=== PATIENT | male | born 1975 | race Caucasian/White ===

== ENCOUNTER 2020-08-18 19:09 | Observation (INO) | payer OTHER ==
[2020-08-18] MEDS ORDERED: ASPIRIN 81 MG PO STA (19:33)
--- NOTE | 2020-08-18 20:15 | XR ---
EXAMINATION: XR chest 2V DATE AND TIME: 08/18/2020 8:08 PM CLINICAL INDICATION: PHH; Chest Pain TECHNIQUE: Departmental protocol COMPARISON: None FINDINGS: The lungs are clear. The pleural spaces are negative. The cardiac silhouette is not enlarged. The remainder of the mediastinal silhouette is unremarkable. The skeletal structures and soft tissues are negative for acute findings. IMPRESSION: NO ACUTE PROCESS.
[2020-08-18 20:22] LABS: ALT 48 U/L (4-49); AST 38 U/L (17-59); African American GFR (CKD) >90 (>60 ml/min/1.73 sqM); Albumin 3.9 g/dL (3.5-5.0); Alkaline Phosphatase 94 U/L (38-126); Anion Gap 7 mmol/L; Blood Urea Nitrogen 19 mg/dL (9-20); Calcium 9.4 mg/dL (8.4-10.2); Carbon Dioxide 22 mmol/L (22-30); Chloride 110 mmol/L (98-107); Glucose 104 mg/dL (74-99); Non-African American GFR(CKD) >90 (>60 ml/min/1.73 sqM); Sodium 139 mmol/L (137-145); Total Bilirubin 0.3 mg/dL (0.2-1.3); Total Protein 6.7 g/dL (6.3-8.2)
[2020-08-18 20:26] LABS: Potassium 4.5 mmol/L (3.5-5.1)
[2020-08-18 20:31] LABS: D-Dimer 0.27 mg/L FEU (<0.60); INR 0.9 (<1.2); Partial Thromboplastin Time 21.1 sec (22.0-30.0); Prothrombin Time 9.4 sec (9.0-12.0)
--- NOTE | 2020-08-18 20:38 | ED ---
General Adult HPI - General Chief complaint: Chest Pain Stated complaint: Chest Pain Time Seen by Provider: 08/18/20 19:16 Source: patient Mode of arrival: EMS Limitations: no limitations - History of Present Illness Initial comments: 45-year-old male patient presents to the emergency department today for evaluation of left-sided chest pain this started approximately an hour prior to arrival. Reports sharp stabbing pain followed by pressure over the left chest. Pain is nonradiating. States he was just walking when symptoms started. Denies shortness of breath, nausea vomiting, sweats with this. Denies his injury of cardiac disease. States he does have a history of high blood pressure and A. fib. The A. fib is related to an overdose from remote history of IV drug use. Does not take any anticoagulants or medication for A. fib. Also has history of cigarette use. He is currently at [facility] for alcohol, states she's been there for about 10 days. He denies any leg pain or swelling. Patient denies any recent rash, cough, abdominal pain, diarrhea, constipation, back pain, numbness, tingling, dizziness, weakness, hematuria, dysuria, urinary urgency, urinary frequency, headache, visual changes, or any other complaints. - Related Data Home Medications Medication Instructions Recorded Confirmed Acetaminophen [Tylenol 8 Hour] 650 mg PO Q4H PRN 08/18/20 08/18/20 Calcium-Magnesium Supp 1 dose PO DIRECTED 08/18/20 08/18/20 Cyproheptadine [Cyproheptadine HCl] 4 mg PO Q4H PRN MDD 16 MG 08/18/20 08/18/20 Ibuprofen [Motrin] 600 mg PO Q6H PRN 08/18/20 08/18/20 Loperamide HCl [Imodium A-D] 4 mg PO QID PRN 08/18/20 08/18/20 Multivitamins, Thera [Multivitamin 1 tab PO DAILY 08/18/20 08/18/20 (formulary)] Thiamine [Vitamin B-1] 100 mg PO DAILY 08/18/20 08/18/20 Tigan 200mg Inj 200 mg IM Q6H PRN 08/18/20 08/18/20 Trimethobenzamide HCl [Tigan] 300 mg PO Q6H PRN 08/18/20 08/18/20 Zofran 2mg/Ml Solution 4 mg IM Q6H PRN 08/18/20 08/18/20 busPIRone HCl [Buspar] 10 mg PO TID PRN 08/18/20 08/18/20 ondansetron HCL [Zofran] 8 mg PO Q6H PRN 08/18/20 08/18/20 traZODone HCL 50 - 150 mg PO HS PRN 08/18/20 08/18/20 Allergies Allergy/AdvReac Type Severity Reaction Status Date / Time No Known Allergies Allergy Verified 08/18/20 20:25 Review of Systems ROS Statement: Those systems with pertinent positive or pertinent negative responses have been documented in the HPI. ROS Other: All systems not noted in ROS Statement are negative. Past Medical History Past Medical History: Atrial Fibrillation History of Any Multi-Drug Resistant Organisms: None Reported Past Surgical History: Adenoidectomy, Orthopedic Surgery, Tonsillectomy Additional Past Surgical History / Comment(s): bilateral hiatal hernia, left wrist Past Psychological History: No Psychological Hx Reported Smoking Status: Current every day smoker Past Alcohol Use History: Daily Past Drug Use History: Marijuana General Exam Limitations: no limitations General appearance: alert, in no apparent distress, other (This is a well- developed, well-nourished adult male patient in no acute distress. Vital signs upon presentation temperature 98.5F, pulse 71, respirations 16, blood pressure 137/90, pulse ox 99% on room air.) Eye exam: Present: normal appearance, PERRL, EOMI. Absent: scleral icterus, conjunctival injection, periorbital swelling ENT exam: Present: normal exam, normal oropharynx, mucous membranes moist Respiratory exam: Present: normal lung sounds bilaterally. Absent: respiratory distress, wheezes, rales, rhonchi, stridor Cardiovascular Exam: Present: regular rate, normal rhythm, normal heart sounds. Absent: systolic murmur, diastolic murmur, rubs, gallop, clicks GI/Abdominal exam: Present: soft, normal bowel sounds. Absent: distended, tenderness, guarding, rebound, rigid Neurological exam: Present: alert, oriented X3, CN II-XII intact Psychiatric exam: Present: normal affect, normal mood Skin exam: Present: warm, dry, intact, normal color. Absent: rash Course Vital Signs 08/18/20 08/18/20 08/18/20 19:11 20:15 22:13 Temperature 98.5 F Pulse Rate 71 68 Pulse Rate [ 68 Pulse Oximetery ] Respiratory 16 16 Rate Blood Pressure 137/90 159/92 O2 Sat by Pulse 99 100 Oximetry - Reevaluation(s) Reevaluation #1: 08/18/20 20:37 Patient re-evaluated states chest pain is improved. Awaiting labs. EKG Findings - EKG Comments: EKG Findings:: EKG obtained in 192 shows normal sinus rhythm with ventricular rate of 72, RI interval 118, QRS duration 86, QT 362, QTc 396. There is evidence of ST elevation in lead 2, QT 3, aVF, and V3. Second EKG obtained at 1945 shows normal sinus rhythm with a rate of 75, RI interval 114, QRS duration 84, QT 352, QTc 393. Continues to show mild elevation in leads 2, lead 3, aVF, and V3. Medical Decision Making - Medical Decision Making 45-year-old male patient presenting from [facility] for alcohol addiction presents with left-sided chest pain started about an hour prior to arrival. Physical examination reveals clear equal lung sounds. No leg swelling. Labs reviewed and did reveal normal troponin. EKG did have some ST elevation noted in lead 2, lead 3, aVF, and possibly V3. Did discuss the case with my attending Dr. August. He'll be admitted for rule out ACS. Serial tr oponins added. He was given aspirin. Patient is agreeable this plan. - Lab Data Result diagrams: 08/18/20 19:33 08/18/20 19:33 Lab Results 08/18/20 08/18/20 08/18/20 Range/Units 19:33 19:33 19:33 WBC 4.8 (3.8-10.6) k/uL RBC 3.77 L (4.30-5.90) m/uL Hgb 13.5 (13.0-17.5) gm/dL Hct 40.2 (39.0-53.0) % MCV 106.6 H (80.0-100.0) fL MCH 35.8 H (25.0-35.0) pg MCHC 33.6 (31.0-37.0) g/dL RDW 13.5 (11.5-15.5) % Plt Count 207 (150-450) k/uL MPV 8.5 Neutrophils % (Manual) 56 % Lymphocytes % (Manual) 26 % Monocytes % (Manual) 13 % Eosinophils % (Manual) 5 % Neutrophils # (Manual) 2.69 (1.3-7.7) k/uL Lymphocytes # (Manual) 1.25 (1.0-4.8) k/uL Monocytes # (Manual) 0.62 (0-1.0) k/uL Eosinophils # (Manual) 0.24 (0-0.7) k/uL Nucleated RBCs 0 (0-0) /100 WBC Polychromasia Present Macrocytosis Moderate PT 9.4 (9.0-12.0) sec INR 0.9 (<1.2) APTT 21.1 L (22.0-30.0) sec D-Dimer 0.27 (<0.60) mg/L FEU Sodium 139 (137-145) mmol/L Potassium 4.5 (3.5-5.1) mmol/L Chloride 110 H (98-107) mmol/L Carbon Dioxide 22 (22-30) mmol/L Anion Gap 7 mmol/L BUN 19 (9-20) mg/dL Creatinine 0.97 (0.66-1.25) mg/dL Est GFR (CKD-EPI)AfAm >90 (>60 ml/min/1.73 sqM) Est GFR (CKD-EPI)NonAf >90 (>60 ml/min/1.73 sqM) Glucose 104 H (74-99) mg/dL Calcium 9.4 (8.4-10.2) mg/dL Magnesium 2.0 (1.6-2.3) mg/dL Total Bilirubin 0.3 (0.2-1.3) mg/dL AST 38 (17-59) U/L ALT 48 (4-49) U/L Alkaline Phosphatase 94 (38-126) U/L Troponin I (0.000-0.034) ng/mL Total Protein 6.7 (6.3-8.2) g/dL Albumin 3.9 (3.5-5.0) g/dL Coronavirus (PCR) (Not Detectd) 08/18/20 08/18/20 Range/Units 19:33 21:06 WBC (3.8-10.6) k/uL RBC (4.30-5.90) m/uL Hgb (13.0-17.5) gm/dL Hct (39.0-53.0) % MCV (80.0-100.0) fL MCH (25.0-35.0) pg MCHC (31.0-37.0) g/dL RDW (11.5-15.5) % Plt Count (150-450) k/uL MPV Neutrophils % (Manual) % Lymphocytes % (Manual) % Monocytes % (Manual) % Eosinophils % (Manual) % Neutrophils # (Manual) (1.3-7.7) k/uL Lymphocytes # (Manual) (1.0-4.8) k/uL Monocytes # (Manual) (0-1.0) k/uL Eosinophils # (Manual) (0-0.7) k/uL Nucleated RBCs (0-0) /100 WBC Polychromasia Macrocytosis PT (9.0-12.0) sec INR (<1.2) APTT (22.0-30.0) sec D-Dimer (<0.60) mg/L FEU Sodium (137-145) mmol/L Potassium (3.5-5.1) mmol/L Chloride (98-107) mmol/L Carbon Dioxide (22-30) mmol/L Anion Gap mmol/L BUN (9-20) mg/dL Creatinine (0.66-1.25) mg/dL Est GFR (CKD-EPI)AfAm (>60 ml/min/1.73 sqM) Est GFR (CKD-EPI)NonAf (>60 ml/min/1.73 sqM) Glucose (74-99) mg/dL Calcium (8.4-10.2) mg/dL Magnesium (1.6-2.3) mg/dL Total Bilirubin (0.2-1.3) mg/dL AST (17-59) U/L ALT (4-49) U/L Alkaline Phosphatase (38-126) U/L Troponin I <0.012 (0.000-0.034) ng/mL Total Protein (6.3-8.2) g/dL Albumin (3.5-5.0) g/dL Coronavirus (PCR) Not Detected (Not Detectd) - EKG Data -: EKG Interpreted by Me EKG Comments: EKG obtained at 2130 shows sinus bradycardia with ventricular 55, RI interval 118, QRS duration 86, QT 400, QTC 382. No changes to ST elevation. - Radiology Data Radiology results: report reviewed, image reviewed Two-view x-ray of the chest is obtained. Report was reviewed in its entirety. Impression by Dr. Charlene Sandoval shows no acute process. Disposition Clinical Impression: Chest pain, Unstable angina Disposition: ADMITTED IP TO THIS [facility] Condition: Serious Decision to Admit Reason: Admit from EC Decision Date: 08/18/20 Decision Time: 21:06
[2020-08-18 20:42] LABS: HCT 40.2 % (39.0-53.0); HGB 13.5 gm/dL (13.0-17.5); MCH 35.8 pg (25.0-35.0); MCHC 33.6 g/dL (31.0-37.0); MCV 106.6 fL (80.0-100.0); Macrocytosis Moderate; Mean Platelet Volume 8.5; Platelet Count 207 k/uL (150-450); RBC 3.77 m/uL (4.30-5.90); RDW 13.5 % (11.5-15.5); WBC 4.8 k/uL (3.8-10.6)
[2020-08-18 20:58] LABS: Eosinophils # (M) 0.24 k/uL (0-0.7); Lymphocytes # (M) 1.25 k/uL (1.0-4.8); Monocytes # (M) 0.62 k/uL (0-1.0); Neutrophils # (M) 2.69 k/uL (1.3-7.7); Neutrophils % (M) 56 %; Nucleated Red Blood Cells 0 /100 WBC (0-0); Polychromasia Present; Total Cells Counted 100
[2020-08-18] MEDS ORDERED: MORPHINE SULFATE 4 MG/ML SYRINGE IVP STA (21:00)
[2020-08-18] MEDS ORDERED: NITROGLYCERIN SL TABS 0.4 MG TAB SUBLINGUAL PRN (21:04)
[2020-08-18] MEDS ORDERED: MORPHINE SULFATE 4 MG/ML SYRINGE IV PRN (21:04)
[2020-08-18] MEDS ORDERED: NICOTINE 21MG/24HR PATCH TRANSDERM STA (22:15)
[2020-08-19] MEDS ORDERED: ONDANSETRON 4 MG TAB PO PRN (00:33)
[2020-08-19] MEDS ORDERED: ACETAMINOPHEN TAB 325 MG TAB PO PRN (00:33)
[2020-08-19] MEDS ORDERED: cloNIDine HCL 0.2 MG TAB PO PRN (00:33)
[2020-08-19] MEDS ORDERED: IBUPROFEN 600 MG TAB PO PRN (00:33)
--- NOTE | 2020-08-19 00:58 | P.HPIM ---
History of Present Illness H&P Date: 08/18/20 Chief Complaint: Chest pain 45-year-old male no significant past medical history, alcoholic Patient comes in from [facility] he has been there for the past 10 days for alcohol detox. Today suddenly he felt left-sided chest pressure rated as 8 out of 10 in severity and nonradiating not associated with any nausea vomiting diaphoresis headache dizziness lightheadedness or shortness of breath patient was evaluated by staff at [facility], decided to notify EMS to go to the hospital for evaluation Patient denies any cardiac history, he is a smoker and heavy drinker denies any active drug abuse. Denies any family history of premature heart disease Patient has received [employer] code vaccine on August 17. Otherwise patient currently is laying down comfortably still having left-sided chest pain rated 5-6 out of 10 in severity patient was found to have elevated blood pressure in the ED otherwise he denies any recent travel denies any recent viral infection denies any history of blood clots denies any other medical concerns at this point EKG showed normal sinus rhythm troponins were negative Review of Systems Pertinent positives as noted in HPI. All other systems were reviewed and are negative Past Medical History Past Medical History: Atrial Fibrillation History of Any Multi-Drug Resistant Organisms: None Reported Past Surgical History: Adenoidectomy, Orthopedic Surgery, Tonsillectomy Additional Past Surgical History / Comment(s): bilateral hiatal hernia, left wrist Past Psychological History: No Psychological Hx Reported Smoking Status: Current every day smoker Past Alcohol Use History: Daily Past Drug Use History: Marijuana - Past Family History family Family Medical History: No Reported History Medications and Allergies Home Medications Medication Instructions Recorded Confirmed Type Acetaminophen [Tylenol 8 Hour] 650 mg PO Q4H PRN 08/18/20 08/18/20 History Calcium-Magnesium Supp 1 dose PO DIRECTED 08/18/20 08/18/20 History Cyproheptadine [Cyproheptadine HCl] 4 mg PO Q4H PRN MDD 16 MG 08/18/20 08/18/20 History Ibuprofen [Motrin] 600 mg PO Q6H PRN 08/18/20 08/18/20 History Loperamide HCl [Imodium A-D] 4 mg PO QID PRN 08/18/20 08/18/20 History Multivitamins, Thera [Multivitamin 1 tab PO DAILY 08/18/20 08/18/20 History (formulary)] Thiamine [Vitamin B-1] 100 mg PO DAILY 08/18/20 08/18/20 History Tigan 200mg Inj 200 mg IM Q6H PRN 08/18/20 08/18/20 History Trimethobenzamide HCl [Tigan] 300 mg PO Q6H PRN 08/18/20 08/18/20 History Zofran 2mg/Ml Solution 4 mg IM Q6H PRN 08/18/20 08/18/20 History busPIRone HCl [Buspar] 10 mg PO TID PRN 08/18/20 08/18/20 History ondansetron HCL [Zofran] 8 mg PO Q6H PRN 08/18/20 08/18/20 History traZODone HCL 50 - 150 mg PO HS PRN 08/18/20 08/18/20 History Allergies Allergy/AdvReac Type Severity Reaction Status Date / Time No Known Allergies Allergy Verified 08/18/20 20:25 Physical Exam Vitals: Vital Signs Temp Pulse Resp BP Pulse Ox 08/18/20 19:11 98.5 F 71 16 137/90 99 Intake and Output 08/18/20 08/18/20 08/18/20 06:59 14:59 22:59 Other: Weight 65.771 kg Constitutional: No acute distress, conversant, pleasant Eyes: Anicteric sclerae, moist conjunctiva, Pupils equal round reactive to light ENMT: NC/AT Oropharynx clear, no erythema, or exudates Neck: Supple, FROM, no masses, or JVD No carotid bruits No thyromegaly Lungs: Clear to auscultation Clear to percussion Normal respiratory effort, no accessory muscle use Cardiovascular: Heart regular in rate and rhythm, No murmurs, gallops, or rubs No peripheral edema Abdominal: Soft Nontender, no guarding, rebound or rigidity Abdomen moving with respiration Normoactive bowel sounds No hepatomegaly, No splenomegaly No palpable mass No abdominal wall hernia noted Skin: Normal temperature, tone, texture, turgor No induration No subcutaneous nodules No rash, lesions No ulcers Extremities: No digital cyanosis No clubbing Pedal pulses intact and symmetrical Radial pulses intact and symmetrical No calf tenderness Psychiatric: Alert and oriented to person, place and time Appropriate affect fair judgement Neuro Muscles Strength 5/5 in all 4 extremities Sensation to light touch grossly present throughout Cranial nerves II-XII grossly intact No focal sensory deficits Lymphatics: no palpable cervical or supraclavicular , or inguinal lymph nodes Results CBC & Chem 7: 08/18/20 19:33 08/18/20 19:33 Labs: Abnormal Lab Results - Last 24 Hours (Table) 08/18/20 08/18/20 08/18/20 Range/Units 19:33 19:33 19:33 RBC 3.77 L (4.30-5.90) m/uL MCV 106.6 H (80.0-100.0) fL MCH 35.8 H (25.0-35.0) pg APTT 21.1 L (22.0-30.0) sec Chloride 110 H (98-107) mmol/L Glucose 104 H (74-99) mg/dL Assessment and Plan Assessment: atypical chest pain Elevated blood pressure Cardiac monitoring Trend troponins Cardiology eval Check echocardiogram Clonidine when necessary Patient with possibly require to be started on blood pressure medications depending on readings while in the hospital if systolic is persistently above 160 otherwise would recommend dietary modification and follow up with PCP Aspirin, nitro when necessary Pain control morphine when necessary as needed Check lipid profile Alcohol abuse Patient status post detox at [facility] Patient counseled to abstain from alcohol abuse CODE STATUS: Full code DVT prophylaxis: Mechanical Discussed with: Patient, ER, RN Anticipated length of stay less than [address]: [facility] A total of 65 minutes was spent on the care of this complex patient more than 50% of the time was spent in counseling and care coordination.
[2020-08-19 09:35] LABS: Chol/HDL Ratio 3.33; LDL Cholesterol,Calculated 73.8 mg/dL (0.0-131.0); VLDL Calculation 26.2 mg/dL (5.00-40.00)
--- NOTE | 2020-08-19 10:28 | P.DS ---
Providers Date of admission: 08/18/20 21:56 Expected date of discharge: 08/19/20 Attending physician: Echo Reynolds MD Consults: 08/18/20 21:04 Consult Physician Urgent Consulting Provider: [facility] Consult Reason/Comments: Unstable angina Do you want consulting provider notified?: Yes Primary care physician: Stated None Hospital Course: HPI: 45-year-old male no significant past medical history, alcoholic Patient comes in from [facility] he has been there for the past 10 days for alcohol detox. Today suddenly he felt left-sided chest pressure rated as 8 out of 10 in severity and nonradiating not associated with any nausea vomiting diaphoresis headache dizziness lightheadedness or shortness of breath patient was evaluated by staff at [facility], decided to notify EMS to go to the hospital for evaluation Patient denies any cardiac history, he is a smoker and heavy drinker denies any active drug abuse. Denies any family history of premature heart disease Patient has received [employer] code vaccine on August 17. Otherwise patient currently is laying down comfortably still having left-sided chest pain rated 5-6 out of 10 in severity patient was found to have elevated blood pressure in the ED otherwise he denies any recent travel denies any recent viral infection denies any history of blood clots denies any other medical co ncerns at this point EKG showed normal sinus rhythm troponins were negative Hospital course and treatment: Patient was admitted to the hospital with chest pain, cardiac enzymes were negative. D-dimer was negative. Chest pain resolved. He was found to have elevated blood pressure which improved. He will be discharged on Norvasc. He will be evaluated by cardiology and will undergo a stress test today. If cleared by cardiology with a negative stress test he will be discharged home with follow-up. He has a history of alcohol abuse/dependence but has been clean for the past 2 weeks. Patient Condition at Discharge: Stable Plan - Discharge Summary Discharge Rx Participant: No New Discharge Prescriptions: New amLODIPine [Norvasc] 5 mg PO DAILY 30 Days #30 tab Continue traZODone HCL 50 - 150 mg PO HS PRN PRN Reason: SLEEP Calcium-Magnesium Supp 1 dose PO DIRECTED Ibuprofen [Motrin] 600 mg PO Q6H PRN PRN Reason: Pain Or Fever > 100.5 Loperamide HCl [Imodium A-D] 4 mg PO QID PRN PRN Reason: Diarrhea Acetaminophen [Tylenol 8 Hour] 650 mg PO Q4H PRN PRN Reason: Pain Or Fever > 100.5 Tigan 200mg Inj 200 mg IM Q6H PRN PRN Reason: Nausea Zofran 2mg/Ml Solution 4 mg IM Q6H PRN PRN Reason: Nausea Thiamine [Vitamin B-1] 100 mg PO DAILY Multivitamins, Thera [Multivitamin (formulary)] 1 tab PO DAILY Cyproheptadine [Cyproheptadine HCl] 4 mg PO Q4H PRN MDD 16 MG PRN Reason: WITHDRAWLS busPIRone HCl [Buspar] 10 mg PO TID PRN PRN Reason: Anxiety Trimethobenzamide HCl [Tigan] 300 mg PO Q6H PRN PRN Reason: Nausea ondansetron HCL [Zofran] 8 mg PO Q6H PRN PRN Reason: Nausea Discharge Medication List Acetaminophen [Tylenol 8 Hour] 650 mg PO Q4H PRN 08/18/20 [History] Calcium-Magnesium Supp 1 dose PO DIRECTED 08/18/20 [History] Cyproheptadine [Cyproheptadine HCl] 4 mg PO Q4H PRN MDD 16 MG 08/18/20 [History] Ibuprofen [Motrin] 600 mg PO Q6H PRN 08/18/20 [History] Loperamide HCl [Imodium A-D] 4 mg PO QID PRN 08/18/20 [History] Multivitamins, Thera [Multivitamin (formulary)] 1 tab PO DAILY 08/18/20 [History] Thiamine [Vitamin B-1] 100 mg PO DAILY 08/18/20 [History] Tigan 200mg Inj 200 mg IM Q6H PRN 08/18/20 [History] Trimethobenzamide HCl [Tigan] 300 mg PO Q6H PRN 08/18/20 [History] Zofran 2mg/Ml Solution 4 mg IM Q6H PRN 08/18/20 [History] busPIRone HCl [Buspar] 10 mg PO TID PRN 08/18/20 [History] ondansetron HCL [Zofran] 8 mg PO Q6H PRN 08/18/20 [History] traZODone HCL 50 - 150 mg PO HS PRN 08/18/20 [History] amLODIPine [Norvasc] 5 mg PO DAILY 30 Days #30 tab 08/19/20 [Rx] Follow up Appointment(s)/Referral(s): None,Stated [Primary Care Provider] - 1-2 days Discharge Disposition: HOME SELF-CARE Care Plan Goals (MU): Discharge once cleared by cardiology with outpatient cardiology follow-up in one week, pending stress test results
--- NOTE | 2020-08-19 11:31 | P.CRDCN ---
History of Present Illness Consult date: 08/19/20 Chief complaint: chest pain History of present illness: This is a 45-year-old gentleman with no significant past medical history who requested to severe on the observation unit for chest discomfort. 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 He was outside smoking a cigarette when suddenly started experiencing discomfort in the middle of the chest as a burning sensation without any radiation and without any associated symptoms. Currently he is chest pain-free. He does have history of hypertension and also smoking as risk factors. No prior history of documented coronary artery disease. He was ruled out for acute coronary event. The EKG showed sinus rhythm without any significant ST or T-wave abnormalities and the cardiac enzymes came in to be unremarkable. I asked the patient to undergo a stress test to rule out severe CAD and he will be scheduled later today to have the stress test. Past Medical History Past Medical History: Atrial Fibrillation History of Any Multi-Drug Resistant Organisms: None Reported Past Surgical History: Adenoidectomy, Orthopedic Surgery, Tonsillectomy Additional Past Surgical History / Comment(s): bilateral hiatal hernia, left wrist Past Psychological History: No Psychological Hx Reported Smoking Status: Current every day smoker Past Alcohol Use History: Daily Past Drug Use History: Marijuana - Past Family History family Family Medical History: No Reported History Medications and Allergies Home Medications Medication Instructions Recorded Confirmed Type Acetaminophen [Tylenol 8 Hour] 650 mg PO Q4H PRN 08/18/20 08/18/20 History Calcium-Magnesium Supp 1 dose PO DIRECTED 08/18/20 08/18/20 History Cyproheptadine [Cyproheptadine HCl] 4 mg PO Q4H PRN MDD 16 MG 08/18/20 08/18/20 History Ibuprofen [Motrin] 600 mg PO Q6H PRN 08/18/20 08/18/20 History Loperamide HCl [Imodium A-D] 4 mg PO QID PRN 08/18/20 08/18/20 History Multivitamins, Thera [Multivitamin 1 tab PO DAILY 08/18/20 08/18/20 History (formulary)] Thiamine [Vitamin B-1] 100 mg PO DAILY 08/18/20 08/18/20 History Tigan 200mg Inj 200 mg IM Q6H PRN 08/18/20 08/18/20 History Trimethobenzamide HCl [Tigan] 300 mg PO Q6H PRN 08/18/20 08/18/20 History Zofran 2mg/Ml Solution 4 mg IM Q6H PRN 08/18/20 08/18/20 History busPIRone HCl [Buspar] 10 mg PO TID PRN 08/18/20 08/18/20 History ondansetron HCL [Zofran] 8 mg PO Q6H PRN 08/18/20 08/18/20 History traZODone HCL 50 - 150 mg PO HS PRN 08/18/20 08/18/20 History amLODIPine [Norvasc] 5 mg PO DAILY 30 Days #30 tab 08/19/20 Rx Allergies Allergy/AdvReac Type Severity Reaction Status Date / Time No Known Allergies Allergy Verified 08/18/20 20:25 Physical Exam Vitals: Vital Signs Temp Pulse Pulse Resp BP BP Pulse Ox 08/19/20 08:11 99 08/19/20 07:00 98.3 F 55 L 18 130/78 100 08/19/20 02:00 98.0 F 59 L 18 144/83 100 08/18/20 23:06 98.2 F 52 L 18 168/93 99 08/18/20 22:13 68 16 159/92 100 08/18/20 20:15 68 08/18/20 19:11 98.5 F 71 16 137/90 99 Intake and Output 08/18/20 08/19/20 08/19/20 22:59 06:59 14:59 Other: Voiding Method Toilet Toilet # Voids 2 Weight 65.771 kg 65.771 kg - Constitutional General appearance: no acute distress - Respiratory Respiratory: bilateral: CTA - Cardiovascular Rhythm: regular Heart sounds: normal: S1, S2 Results 08/18/20 19:33 08/18/20 19:33 Cardiac Enzymes 08/18/20 08/18/20 08/18/20 Range/Units 19:33 19:33 22:45 AST 38 (17-59) U/L Troponin I <0.012 <0.012 (0.000-0.034) ng/mL 08/19/20 Range/Units 02:40 AST (17-59) U/L Troponin I <0.012 (0.000-0.034) ng/mL Coagulation 08/18/20 Range/Units 19:33 PT 9.4 (9.0-12.0) sec APTT 21.1 L (22.0-30.0) sec Lipids 08/19/20 Range/Units 02:40 Triglycerides 131.0 (0.0-149.0) mg/dL Cholesterol 143 (0-200) mg/dL HDL Cholesterol 43.0 (40.0-60.0) mg/dL Cholesterol/HDL Ratio 3.33 CBC 08/18/20 Range/Units 19:33 WBC 4.8 (3.8-10.6) k/uL RBC 3.77 L (4.30-5.90) m/uL Hgb 13.5 (13.0-17.5) gm/dL Hct 40.2 (39.0-53.0) % Plt Count 207 (150-450) k/uL Comprehensive Metabolic Panel 08/18/20 Range/Units 19:33 Sodium 139 (137-145) mmol/L Potassium 4.5 (3.5-5.1) mmol/L Chloride 110 H (98-107) mmol/L Carbon Dioxide 22 (22-30) mmol/L BUN 19 (9-20) mg/dL Creatinine 0.97 (0.66-1.25) mg/dL Glucose 104 H (74-99) mg/dL Calcium 9.4 (8.4-10.2) mg/dL AST 38 (17-59) U/L ALT 48 (4-49) U/L Alkaline Phosphatase 94 (38-126) U/L Total Protein 6.7 (6.3-8.2) g/dL Albumin 3.9 (3.5-5.0) g/dL Current Medications Generic Name Dose Route Start Last Admin Trade Name Freq PRN Reason Stop Dose Admin Acetaminophen 650 mg 08/19/20 00:33 Acetaminophen Tab 325 Mg Tab PO Q4H PRN Pain or Fever > 100.5 Aspirin 325 mg 08/19/20 09:00 Aspirin 325 Mg Tab PO DAILY AVEL Buspirone HCl 10 mg 08/19/20 00:33 Buspirone Hcl 10 Mg Tab PO TID PRN Anxiety Clonidine 0.2 mg 06/11/21 00:33 Clonidine Hcl 0.2 Mg Tab PO TID PRN Blood Pressure - High Ibuprofen 600 mg 08/19/20 00:33 Ibuprofen 600 Mg Tab PO Q6H PRN Pain or Fever > 100.5 Morphine Sulfate 4 mg 08/18/20 21:04 Morphine Sulfate 4 Mg/Ml Syringe IV Q4H PRN Chest Pain Nitroglycerin 0.4 mg 08/18/20 21:04 08/18/20 22:18 Nitroglycerin Sl Tabs 0.4 Mg Tab SUBLINGUAL 0.4 mg Q5M PRN Administration Chest Pain Ondansetron HCl 8 mg 08/19/20 00:33 Ondansetron 4 Mg Tab PO Q6H PRN Nausea Thiamine HCl 100 mg 08/19/20 09:00 Thiamine 100 Mg Tab PO DAILY AVEL Intake and Output 08/18/20 08/19/20 08/19/20 22:59 06:59 14:59 Other: Voiding Method Toilet Toilet # Voids 2 Weight 65.771 kg 65.771 kg 08/18/20 19:33 08/18/20 19:33 Assessment and Plan Assessment: assessment #1 atypical chest discomfort #2 history of smoking Plan #1 acute coronary event was ruled out #2 I will schedule the patient to undergo a stress test
[2020-08-19] MEDS: ASPIRIN 325 MG TAB PO SCH (11:51)
[2020-08-19] MEDS: THIAMINE 100 MG TAB PO SCH (11:52)
[2020-08-19] MEDS: busPIRone HCl 10 MG TAB PO PRN (15:50)
--- NOTE | 2020-08-19 16:53 | P.PN ---
Subjective Progress Note Date: 08/19/20 Principal diagnosis: Feels okay, no nausea or vomiting. Had some chest discomfort. Objective - Vital Signs Vital signs: Vital Signs Temp 97.9 F 08/19/20 15:00 Pulse 64 08/19/20 15:00 Resp 18 08/19/20 15:00 BP 126/87 08/19/20 15:00 Pulse Ox 98 08/19/20 15:00 Intake & Output 08/18/20 08/19/20 08/19/20 18:59 06:59 18:59 Weight 65.771 kg 65.77 kg Other: Voiding Method Toilet Toilet # Voids 2 2 - Exam Constitutional: No acute distress, conversant, pleasant Eyes: Anicteric sclerae, moist conjunctiva, no lid-lag, PERRLA ENMT: NC/AT,Oropharynx clear, no erythema, exudates Neck:Supple, FROM, no masses, or JVD Lungs: Clear to auscultation, Clear to percussion, Normal respiratory effort, no accessory muscle use Cardiovascular: Heart regular in rate and rhythm, No murmurs, gallops, or rubs no peripheral edema Abdominal: Soft Nontender, non distended, no guarding, no rebound or rigidity, Normoactive bowel sounds No hepatomegaly, No splenomegaly, No palpable mass No abdominal wall hernia noted Extremities:No digital cyanosis No clubbing, Pedal pulses intact and symmetrical Radial pulses intact and symmetrical Normal gait and station, No calf tenderness Psychiatric: Alert and oriented to person, place and time, Appropriate affect Intact judgement Neuro: Muscles Strength 5/5 in all 4 extremities, Sensation to light touch grossly present throughout, Cranial nerves II-XII grossly intact. No focal s ensory deficits - Labs CBC & Chem 7: 08/18/20 19:33 08/18/20 19:33 Labs: Abnormal Lab Results - Last 24 Hours (Table) 08/18/20 08/18/20 08/18/20 Range/Units 19:33 19:33 19:33 RBC 3.77 L (4.30-5.90) m/uL MCV 106.6 H (80.0-100.0) fL MCH 35.8 H (25.0-35.0) pg APTT 21.1 L (22.0-30.0) sec Chloride 110 H (98-107) mmol/L Glucose 104 H (74-99) mg/dL Assessment and Plan Assessment: 1. Chest pain, unspecified etiology with some EKG changes status post stress test, cardiology consult input appreciated. Plan to monitor patient overnight. 2. Essential hypertension: Not well controlled, added Norvasc 3. Depression: Continue Wellbutrin Disposition: Home likely tomorrow
[2020-08-19] MEDS ORDERED: traZODone HCL 50 MG TAB PO SCH (21:00)
[2020-08-19] MEDS: NICOTINE 21MG/24HR PATCH TRANSDERM SCH (21:42)
[2020-08-20 03:00] VITALS: TEMP 97.6
--- NOTE | 2020-08-20 08:00 | EST ---
EXERCISE STRESS AGE: 45 SEX: Male HT: 5'7" WT: 144 lbs. PROTOCOL: [employer] STAGE: 5 DURATION OF EXERCISE: 12:31 HEART RATE REST: 77 BLOOD PRESSURE REST: 116/88 MAXIMUM HEART RATE ACHIEVED: 168 MAXIMUM BLOOD PRESSURE: 179/81 85% MPHR: 150 100% MPHR: 177 METS: 12.9 INDICATIONS: Chest pain. CLINICAL INFORMATION: Chest pain STRESS DATA: Heart rate 77, pressure 116/88 mmHg. Baseline EKG showed sinus mechanism. The patient exercised on the treadmill according to [employer] protocol for a total of 12 minutes and achieved 12.9 METS. Max heart rate was 168 which is about 95% of maximum predicted heart rate and maximum blood pressure was 145/88 mmHg. Clinically, the patient did not have any symptoms and the EKG did not show any significant ST or T-wave abnormalities concerning for ischemia. CONCLUSION: 1. Excellent exercise tolerance. 2. Chest discomfort in response to exercise. 3. Mild EKG changes in response to exercise. MMODL / IJN: [id number] /
[2020-08-20 08:08] VITALS: BP 134/79; PULSE 60; RESP 16
--- NOTE | 2020-08-20 08:33 | P.PN ---
Subjective Progress Note Date: 08/20/20 Principal diagnosis: Chest pain This is a 45-year-old gentleman with hypertension who was admitted to the hospital with a chest discomfort and ruled out for acute coronary event. He underwent yesterday an exercise treadmill stress test with mild EKG changes in response to exercise. He could potentially benefit from stress test with imaging modality. He was seen this morning. He stated that he has been chest pain-free. I asked the patient to get up and around and if he is asymptomatic he potentially come go home and will arrange for stress test was imaging modality. Otherwise if he develop any chest discomfort I would consider proceeding with coronary angiogram. Objective - Vital Signs Vital signs: Vital Signs Temp 97.6 F 08/20/20 07:00 Pulse 60 08/20/20 07:00 Resp 16 08/20/20 07:00 BP 134/79 08/20/20 07:00 Pulse Ox 99 08/20/20 07:00 Intake & Output 08/19/20 08/20/20 08/20/20 18:59 06:59 18:59 Weight 65.77 kg Other: Voiding Method Toilet Toilet # Voids 2 2 - Constitutional General appearance: Present: no acute distress - Respiratory Respiratory: bilateral: CTA - Cardiovascular Rhythm: regular Heart sounds: normal: S1, S2 - Labs CBC & Chem 7: 08/18/20 19:33 08/18/20 19:33 Assessment and Plan Assessment: assessment #1 atypical chest discomfort #2 history of smoking Plan #1 acute coronary event was ruled out #2 we will get the patient up and around and if he is asymptomatic he potentially can be discharged home. If he develop any more episodes of chest discomfort I would consider proceeding with coronary angiogram
[2020-08-20] MEDS: ASPIRIN 325 MG TAB PO SCH (08:57)
[2020-08-20] MEDS: THIAMINE 100 MG TAB PO SCH (08:58)
[2020-08-20] MEDS: NICOTINE 21MG/24HR PATCH TRANSDERM SCH (08:58)
[2020-08-20] MEDS ORDERED: amLODIPine 5 MG TAB PO SCH (09:00)
[2020-08-20] MEDS: busPIRone HCl 10 MG TAB PO PRN (09:01)
--- NOTE | 2020-08-20 16:35 | P.DS ---
Providers Date of admission: 08/18/20 21:56 Expected date of discharge: 08/20/20 Attending physician: Echo Reynolds MD Consults: 08/18/20 21:04 Consult Physician Urgent Consulting Provider: [facility] Consult Reason/Comments: Unstable angina Do you want consulting provider notified?: Yes Primary care physician: Stated None Hospital Course: 1. Chest pain, unspecified etiology with some EKG changes status post stress test, cardiology consult input appreciated. Planned to monitor patient overnight. Cardiology saw and cleared patient for discharge. His trended troponins were negative, and he did not exhibit any further chest pain. He will follow up with PCP and cardiology outpatient. 2. Essential hypertension: Not well controlled, added Norvasc 3. Depression: Continue Wellbutrin 4. ETOH Use Disorder: Patient will continue rehab at [facility] upon discharge. Only medication change was the addition of norvasc for HTN. Assessment: Gen: awake, alert HEENT: normocephalic, atraumatic, good hearing acuity, moist mucous membranes Resp: good air exchange, breathing comfortably with no accessory muscle use, clear to auscultation bilaterally CVS: good distal perfusion x 4, regular rate and rhythm without murmurs GI: soft, NTTP, ND : no SPT, no CVAT, price catheter not present MSK: no pitting edema, no clubbing Neuro: non-focal, moving all extremities Psych: cooperative, euthymic mood Patient Condition at Discharge: Good Plan - Discharge Summary Discharge Rx Participant: No New Discharge Prescriptions: New amLODIPine [Norvasc] 5 mg PO DAILY 30 Days #30 tab Continue traZODone HCL 50 - 150 mg PO HS PRN PRN Reason: SLEEP Calcium-Magnesium Supp 1 dose PO DIRECTED Ibuprofen [Motrin] 600 mg PO Q6H PRN PRN Reason: Pain Or Fever > 100.5 Loperamide HCl [Imodium A-D] 4 mg PO QID PRN PRN Reason: Diarrhea Acetaminophen [Tylenol 8 Hour] 650 mg PO Q4H PRN PRN Reason: Pain Or Fever > 100.5 Tigan 200mg Inj 200 mg IM Q6H PRN PRN Reason: Nausea Zofran 2mg/Ml Solution 4 mg IM Q6H PRN PRN Reason: Nausea Thiamine [Vitamin B-1] 100 mg PO DAILY Multivitamins, Thera [Multivitamin (formulary)] 1 tab PO DAILY Cyproheptadine [Cyproheptadine HCl] 4 mg PO Q4H PRN MDD 16 MG PRN Reason: WITHDRAWLS busPIRone HCl [Buspar] 10 mg PO TID PRN PRN Reason: Anxiety Trimethobenzamide HCl [Tigan] 300 mg PO Q6H PRN PRN Reason: Nausea ondansetron HCL [Zofran] 8 mg PO Q6H PRN PRN Reason: Nausea Discharge Medication List Acetaminophen [Tylenol 8 Hour] 650 mg PO Q4H PRN 08/18/20 [History] Calcium-Magnesium Supp 1 dose PO DIRECTED 08/18/20 [History] Cyproheptadine [Cyproheptadine HCl] 4 mg PO Q4H PRN MDD 16 MG 08/18/20 [History] Ibuprofen [Motrin] 600 mg PO Q6H PRN 08/18/20 [History] Loperamide HCl [Imodium A-D] 4 mg PO QID PRN 08/18/20 [History] Multivitamins, Thera [Multivitamin (formulary)] 1 tab PO DAILY 08/18/20 [History] Thiamine [Vitamin B-1] 100 mg PO DAILY 08/18/20 [History] Tigan 200mg Inj 200 mg IM Q6H PRN 08/18/20 [History] Trimethobenzamide HCl [Tigan] 300 mg PO Q6H PRN 08/18/20 [History] Zofran 2mg/Ml Solution 4 mg IM Q6H PRN 08/18/20 [History] busPIRone HCl [Buspar] 10 mg PO TID PRN 08/18/20 [History] ondansetron HCL [Zofran] 8 mg PO Q6H PRN 08/18/20 [History] traZODone HCL 50 - 150 mg PO HS PRN 08/18/20 [History] amLODIPine [Norvasc] 5 mg PO DAILY 30 Days #30 tab 08/19/20 [Rx] Follow up Appointment(s)/Referral(s): Avel Tao MD [STAFF PHYSICIAN] - 1 Week (Cardiology office to call patient with appointment time) None,Stated [Primary Care Provider] - 1-2 days () Patient Instructions/Handouts: Chest Pain (DC), Heart Healthy Diet (DC), Hypertension (DC) Discharge Disposition: HOME SELF-CARE
== END 2020-08-20 13:42 | disposition home or self-care (01) ==
LOC: EC 19:09 → 6NMEDSUR 21:56
PROVIDERS: ADMIT Internal Medicine; ATTEND Internal Medicine
DX: R07.89 Other chest pain (principal); I10 Essential (primary) hypertension; R94.31 Abnormal electrocardiogram [ECG] [EKG]; F10.20 Alcohol dependence, uncomplicated; I48.91 Unspecified atrial fibrillation; F17.210 Nicotine dependence, cigarettes, uncomplicated; F32.9 Major depressive disorder, single episode, unspecified; Z20.822 Contact with and (suspected) exposure to COVID-19; Z79.899 Other long term (current) drug therapy; Z98.890 Other specified postprocedural states; Z87.898 Personal history of other specified conditions
CPT/HCPCS: 93005 ×3; 96374; 99285; 36415; 94760; 93017; 85379; 80061; 80053; 83735; 84484 ×2; 85025; 85610; 85730; 87635; 71046; G0378 ×3; S4990 ×3; J2270